=== PATIENT | male | born 1975 | race Caucasian/White ===

== ENCOUNTER 2016-12-05 10:17 | Emergency (ER) | payer SELFPAY ==
--- NOTE | ~2016-12-05 | EKG ---
PATIENT: SIN LUNDY UNIT #: [id number] Ventricular Rate: 85 BPM Atrial Rate: 85 BPM P-R Interval: 160 ms QRS Duration: 88 ms Q-T Interval: 354 ms QTC Calculation(Bezet): 421 ms P [place]: 71 degrees Calculated R [place]: 79 degrees Calculated T [place]: 77 degrees Diagnosis Line: Normal sinus rhythm with sinus arrhythmia Diagnosis Line: Normal ECG Diagnosis Line: When compared with ECG of 10-AUG-2016 15:19, Diagnosis Line: No significant change was found Diagnosis Line: Confirmed by LUISA CEJA MD ([id number]) on Diagnosis Line: 12/05/2016 12:13:01 PM INTERPRETING MD: CALIN
--- NOTE | ~2016-12-05 | CR63 ---
[facility] RADIOLOGY TEXT RESULTS PATIENT: SIN LUNDY LOCATION: [facility] : 75 UNIT #: [id number] AGE: [address]: Nghia Erwin MD SEX: M ORDER DR: [id number] [address] [place], [place] [address] [id number] MR#: [id number] Acc #: [id number] NAME: SIN LUNDY. : 1975 SEX: M STUDY DATE/TIME: 12/05/2016 10:54 UNIT: [facility] ROOM: STUDY DESCRIPTION: CR Chest 2 View Attending Physician: Nghia Erwin M.D. Ordering Physician: Nghia Erwin M.D. Primary Care Physician: Primary Care Physician No MEDICAL IMAGING REPORT This report is preliminary unless electronic signature is present EXAM 2 views chest 12/05/2016 HISTORY Short of air. Chest pain, cough today. TECHNIQUE PA and lateral radiographs of the chest are presented. COMPARISON 08/10/2016 FINDINGS Old healed posterior right 9th rib fracture. No acute bony abnormality. Heart and mediastinum normal in size and contour. The lungs hyperinflated as on prior studies suggesting underlying chronic airway disease. Evidence of emphysema within the mid to upper lung zones with relative parenchymal lucency. No change. No evidence of acute infectious or inflammatory disease, pleural effusion or pneumothorax. No suspicious nodule. Dictated by... Luis Redd M.D. THIS IS AN ELECTRONICALLY VERIFIED REPORT Luis Redd M.D. at 12/06/2016 7:54 AM JSK/joesph TD: 12/05/2016 13:00 JOB #: [id number] [facility] RADIOLOGY TEXT RESULTS PATIENT: SIN LUNDY LOCATION: [facility] : 75 UNIT #: [id number] AGE: [address]: Nghia Erwin MD SEX: M ORDER DR: MEDICAL IMAGING REPORT COPY
[~2016-12-05 10:17] MED LIST: BACTRIM DS TABL1 TA1; BACTRIM DS TABL1 TA1 DOB; BACTRIM DS TABL1 TA1 PO; CIPRO PO; CLEOCIN PO; COMBIVIR TABLE1 EACH PO; COMBIVIR TABLET1 TAB; COMBIVIR TABLET1 TAB PO; DICLOFENAC PO; FLEXERIL PO; IBUPROFEN800 MG PO; KEFLEX500 MG PO; LORTAB 10-5001 EACH PO; LORTAB 5/500 TA1 TA1 PO; MOBIC PO; NO MEDICATIONS; PRENATAL1 TA1 PO; RAYATAZ; RAYATAZ PO; REYATAZ200 MG PO; SUSTIVA; TYLOX 5-500 CA1 EACH PO; ULTRAM; ULTRAM PO; VIBRAMYCIN100 M1 DOB; VICODIN PO; ZITHROMAX1 G/PKT PO
[2016-12-05 10:19] LABS: BASOPHIL% 0.4 % (0-2.5); EOSINOPHIL# 0.1 X10e3 (0-0.7); EOSINOPHIL% 1.2 % (0.0-7.0); HEMATOCRIT 42.4 % (38.0-50.0); HEMOGLOBIN 14.9 gm/dL (13.0-16.0); LYMPHOCYTE# 1.8 X10e3 (1.0-3.5); LYMPHOCYTE% 26.6 % (17.0-45.0); MEAN CELL VOLUME 110.9 FL (83-96); MEAN CORPUSCULAR HGB CONC 35.1 g/dL (30-36); MEAN PLATELET VOLUME 9.2 FL (6.5-11.5); MONOCYTE# 0.8 X10e3 (0-1.0); MONOCYTE% 11.4 % (3.0-12.0); NEUTROPHIL% 60.4 % (40-75); PLATELET COUNT 200 X10e3 (140-420); RED BLOOD COUNT 3.82 X10e (3.90-5.60); RED CELL DISTRIBUTION WIDTH 12.8 % (11.0-15.5); WHITE BLOOD COUNT 6.7 X10e3 (4.0-10.5)
[2016-12-05 10:20] LABS: DIFF IND NO
[2016-12-05 10:49] LABS: ALBUMIN SERUM 4.1 g/dL (3.5-5.0); ALKALINE PHOSPHATASE 69 U/L (32-92); ALT (SGPT) 23 U/L (10-40); AST (SGOT) 26 U/L (10-42); BILIRUBIN, DIRECT 0.2 mg/dL (0.0-0.2); BILIRUBIN,INDIRECT 2.3 mg/dL (0.0-0.9); BILIRUBIN,TOTAL 2.5 mg/dL (0.2-2.0); BLOOD UREA NITROGEN 15 mg/dL (9-23); BUN/CREATININE RATIO 21.42; CALCIUM SERUM 8.6 mg/dL (8.4-10.2); CARBON DIOXIDE 25 mmol/L (22-31); CHLORIDE 106 mmol/L (100-111); CREATININE SERUM 0.7 mg/dL (0.6-1.4); GLOM FILT RATE Estimated ABOVE60 mL/min (>60); GLUCOSE FASTING 117 mg/dL (70-110); PROTEIN TOTAL SERUM 7.1 g/dL (6.0-8.3); SODIUM 135 mmol/L (135-145)
[2016-12-05 13:18] LABS: INFLUENZA A NEG (NEG); INFLUENZA B NEG (NEG)
== END 2016-12-05 13:08 | disposition home or self-care (01) ==
LOC: CED 10:17
PROVIDERS: Emergency Medicine
DX: J44.1 Chronic obstructive pulmonary disease with (acute) exacerbation (principal); F17.200 Nicotine dependence, unspecified, uncomplicated
CPT/HCPCS: 36415; 71020; 80048; 80076; 84484; 85025; 87040; 87804; 93005; 94640; 96361; 96365; 96374; 96375; 99284; J2930

== ENCOUNTER 2017-01-15 10:47 | Emergency (ER) | payer OTHER | END 2017-01-15 10:53 | disposition home or self-care (01) | LOC: CFTX 10:47 | DX: M54.16 Radiculopathy, lumbar region (principal); J44.9 Chronic obstructive pulmonary disease, unspecified; F17.210 Nicotine dependence, cigarettes, uncomplicated; Z21 Asymptomatic human immunodeficiency virus [HIV] infection status | CPT/HCPCS: 96372; 99283; J1885 ==

== ENCOUNTER 2017-01-28 14:47 | Emergency (ER) | payer OTHER ==
--- NOTE | ~2017-01-28 | US84 ---
[id number] [facility] [address] [place], [place] [address] [id number] E MR#: [id number] Acc #: [id number] NAME: SIN LUNDY : 1975 SEX: M STUDY DATE/TIME: 01/28/2017 15:30 UNIT: [id number] ROOM: STUDY DESCRIPTION: US LE Veins Complete Agustin Stdy Attending Physician: Sin Gerardo Aprn Ordering Physician: Sin Gerardo Aprn Primary Care Physician: No Primary Care Physician MEDICAL IMAGING REPORT This report is preliminary unless electronic signature is present EXAM Bilateral lower extremity venous ultrasound. HISTORY Pain and swelling bilateral lower extremities for 1.5 days. TECHNIQUE Venous ultrasound examination of both lower extremities was performed using grayscale, spectral Doppler and color flow Doppler imaging. FINDINGS The examination is negative. There is no evidence of deep venous thrombus from the groin to the lower calf bilaterally. Visualized greater saphenous veins are also patent. IMPRESSION Negative examination. No evidence of lower extremity deep venous thrombosis. Dictated by... Adan Ballard M.D. THIS IS AN ELECTRONICALLY VERIFIED REPORT Adan Ballard M.D. at 01/28/2017 10:49 PM DFL/danita TD: 01/28/2017 17:50 JOB #: [id number] MEDICAL IMAGING REPORT Page 1 of 1 COPY
[2017-01-28 17:46] LABS: BASOPHIL% 0.3 % (0-2.5); EOSINOPHIL# 0.2 X10e3 (0-0.7); EOSINOPHIL% 1.7 % (0.0-7.0); HEMATOCRIT 41.1 % (38.0-50.0); HEMOGLOBIN 14.2 gm/dL (13.0-16.0); LYMPHOCYTE# 2.8 X10e3 (1.0-3.5); LYMPHOCYTE% 24.5 % (17.0-45.0); MEAN CELL VOLUME 108.5 FL (83-96); MEAN CORPUSCULAR HEMOGLOBIN 37.5 PG (28-34); MEAN CORPUSCULAR HGB CONC 34.5 g/dL (30-36); MEAN PLATELET VOLUME 8.9 FL (6.5-11.5); MONOCYTE# 1.4 X10e3 (0-1.0); MONOCYTE% 11.7 % (3.0-12.0); NEUTROPHIL# 7.1 X10e3 (1.5-7.1); NEUTROPHIL% 61.8 % (40-75); PLATELET COUNT 148 X10e3 (140-420); RED BLOOD COUNT 3.79 X10e (3.90-5.60); RED CELL DISTRIBUTION WIDTH 13.1 % (11.0-15.5); WHITE BLOOD COUNT 11.6 X10e3 (4.0-10.5)
[2017-01-28 17:53] LABS: DIFF IND YES
[2017-01-28 18:06] LABS: BUN/CREATININE RATIO 28.33; CALCIUM SERUM 8.7 mg/dL (8.4-10.2); CREATININE SERUM 0.6 mg/dL (0.6-1.4); GLOM FILT RATE Estimated 124.9 mL/min (>60); POTASSIUM 3.4 mmol/L (3.5-5.1)
[2017-01-28 18:20] LABS: PLATELET ESTIMATE NORMAL (NORMAL); STOMATOCYTE PRESENT
[2017-01-28 18:24] LABS: %MB 0.5 % (0.0-4.0); MB 3.1 ng/ml
== END 2017-01-28 19:10 | disposition home or self-care (01) ==
LOC: CFTX 14:47
PROVIDERS: Nurse Practitioner Family
DX: M79.662 Pain in left lower leg (principal); M79.661 Pain in right lower leg; J44.9 Chronic obstructive pulmonary disease, unspecified; Z21 Asymptomatic human immunodeficiency virus [HIV] infection status; F17.210 Nicotine dependence, cigarettes, uncomplicated
CPT/HCPCS: 36415; 80048; 82550; 82553; 85025; 93970; 99284